=== PATIENT | female | born 2000 | race African-American/Black ===

== ENCOUNTER 2020-02-22 00:46 | Emergency (ER) | payer BC, OTHER ==
[~2020-02-22] VITALS: Ht 167.6 cm; Wt 59.0 kg
[2020-02-22 02:37] LABS: ABSOLUTE NEUTROPHILS 4.7 thou/uL (1.4-8.2); BASOPHILS 0.7 % (0.0-2.0); EOSINOPHILS 2.5 % (0.0-3.0); HEMOGLOBIN 10.9 gm/dL (12.0-15.0); LYMPHOCYTES 30.1 % (24.0-44.0); MCH 24.7 pg (26.0-34.0); MCHC 31.2 g/dL (28.0-37.0); MCV 79.1 fL (80.0-100.0); MONOCYTES 6.7 % (1.0-8.0); PLATELET COUNT 354 thou/uL (150-400); RBC 4.43 mil/uL (4.20-5.00); RDW 16.1 % (10.5-14.5); WBC 7.9 thou/uL (4.0-11.0)
[2020-02-22 02:42] LABS: CALCIUM 9.6 mg/dL (8.5-10.1); CREATININE 0.8 mg/dL (0.6-1.0); POTASSIUM 3.3 mmol/L (3.5-5.1)
[2020-02-22 03:36] VITALS: BP 118/63
--- NOTE | 2020-02-22 12:48 | EKG ---
[address] [address] ELECTROCARDIOGRAM REPORT Name: ALIX RUFFIN MIGUELELIA Room #: [facility]ENTERChuckChuck#: [id number] Admission: 02/22/20 Attend Phys: Discharge: 02/22/20 Date of : 00 Report #: [id number] [facility] ED Test Date: 2020-02-22 Test Time: 00:55:18 Pat Name: ALIX RUFFIN Department: Room: Gender: F Dope Heater: MPARK : 2000 Requested By: Kym Shi Order Number: [id number] MD: Bassam Palmer Measurements Intervals [place] Rate: 81 P: 97 [place]: 160 QRS: 94 QRSD: 85 T: 44 QT: 379 QTc: 440 Interpretive Statements Sinus rhythm Borderline right axis deviation No previous ECG available for comparison Electronically Signed On 02-22-2020 12:48:05 [employer] by Bassam Palmer [email or web address] <ELECTRONICALLY SIGNED> By: Bassam Palmer MD, [facility] 02/22/20 1248 0055 0055 Bassam Palmer MD, FACC /EPI
== END 2020-02-22 03:37 | disposition home or self-care (01) ==
LOC: ER 00:46
PROVIDERS: Emergency Medicine
DX: R00.2 Palpitations (principal); R07.89 Other chest pain